=== PATIENT | male | born 1965 | race Caucasian/White ===

== ENCOUNTER 2023-02-23 18:09 | Emergency (ER) | payer BC, OTHER ==
[~2023-02-23] VITALS: Ht 180.3 cm; Wt 108.9 kg
[~2023-02-23 18:09] MED LIST: BENTYL10 MG PO; FLEXERIL10 MG PO; HYDROCODONE BIT1 T11 PO; KEFLEX500 MG PO; NAPROSYN500 MG PO; OMEPRAZOLE40 MG PO; ZOFRAN ODT8 MG PO
[2023-02-23 20:28] LABS: BASO # 0.1 10*3/uL (0.0-0.1); BASO % 1.4 % (0.0-1.0); EOS # 0.1 10*3/uL (0.0-0.4); EOS % 1.8 % (1.0-4.0); HEMATOCRIT 35.1 % (42.0-52.0); LYMPH # 1.3 10*3/uL (1.3-4.4); LYMPH % 22.4 % (27.0-41.0); MEAN CORPUSCULAR HGB 30.5 pg (27.0-31.0); MEAN CORPUSCULAR HGB CONC 33.9 g/dl (33.0-37.0); MEAN PLATELET VOLUME 9.5 fl (9.6-12.3); MONO # 0.5 10*3/uL (0.1-1.0); MONO % 8.1 % (3.0-9.0); NEUT # 3.8 10*3/uL (2.3-7.9); NEUT % 66.1 % (47.0-73.0); PLATELET COUNT AUTOMATED 220 10*3/uL (130-400); RED CELL DISTRI WIDTH 12.4 % (0-14.5); WHITE BLOOD COUNT 5.7 10*3/uL (4.8-10.8)
[2023-02-24 00:20] LABS: BASO # 0.1 10*3/uL (0.0-0.1); BASO % 0.9 % (0.0-1.0); EOS # 0.1 10*3/uL (0.0-0.4); EOS % 0.8 % (1.0-4.0); HEMATOCRIT 34.6 % (42.0-52.0); LYMPH # 1.3 10*3/uL (1.3-4.4); LYMPH % 17.2 % (27.0-41.0); MEAN CELL VOLUME 88.9 fl (80.0-94.0); MEAN CORPUSCULAR HGB 30.6 pg (27.0-31.0); MEAN CORPUSCULAR HGB CONC 34.4 g/dl (33.0-37.0); MEAN PLATELET VOLUME 9.2 fl (9.6-12.3); MONO # 0.5 10*3/uL (0.1-1.0); NEUT # 5.8 10*3/uL (2.3-7.9); PLATELET COUNT AUTOMATED 217 10*3/uL (130-400); RED BLOOD COUNT 3.89 10*6/uL (4.50-5.90); RED CELL DISTRI WIDTH 12.4 % (0-14.5); WHITE BLOOD COUNT 7.8 10*3/uL (4.8-10.8)
== END 2023-02-24 01:19 | disposition home or self-care (01) ==
LOC: ED 18:09
PROVIDERS: Internal Medicine
DX: R04.0 Epistaxis (principal); K21.9 Gastro-esophageal reflux disease without esophagitis; Z87.442 Personal history of urinary calculi; F32.A Depression, unspecified; Z98.890 Other specified postprocedural states; Z95.5 Presence of coronary angioplasty implant and graft

== ENCOUNTER 2024-03-17 03:31 | Emergency (ER) | payer BC ==
[~2024-03-17] VITALS: Ht 170.1 cm; Wt 110.2 kg
[2024-03-17] MEDS ORDERED: Meclizine Hydrochloride 25 MG TAB PO ONE (03:45)
[2024-03-17] MEDS ORDERED: methylPREDNISolone sod succ 125 MG VIAL IM ONE (03:45)
[2024-03-17] MEDS ORDERED: MEDI-MECLIZINE25 MG PO (05:11)
== END 2024-03-17 05:15 | disposition home or self-care (01) ==
LOC: ED 03:31
DX: H81.10 Benign paroxysmal vertigo, unspecified ear (principal); K21.9 Gastro-esophageal reflux disease without esophagitis; F32.A Depression, unspecified; Z87.442 Personal history of urinary calculi; Z98.890 Other specified postprocedural states

== ENCOUNTER 2024-09-21 18:09 | Emergency (ER) | payer OTHER ==
[~2024-09-21] VITALS: Wt 108.9 kg
[~2024-09-21 18:09] MED LIST changes: +MEDI-MECLIZINE25 MG PO
[2024-09-21 19:18] LABS: BASO # 0.1 10*3/uL (0.0-0.1); BASO % 0.6 % (0.0-1.0); EOS # 0.1 10*3/uL (0.0-0.4); EOS % 0.6 % (1.0-4.0); HEMATOCRIT 39.7 % (42.0-52.0); MEAN CELL VOLUME 87.1 fl (80.0-94.0); MEAN CORPUSCULAR HGB 29.8 pg (27.0-31.0); MEAN CORPUSCULAR HGB CONC 34.3 g/dl (33.0-37.0); MEAN PLATELET VOLUME 9.3 fl (9.6-12.3); MONO % 8.5 % (3.0-9.0); NEUT # 9.3 10*3/uL (2.3-7.9); NEUT % 79.6 % (47.0-73.0); PLATELET COUNT AUTOMATED 218 10*3/uL (130-400); RED BLOOD COUNT 4.56 10*6/uL (4.50-5.90); RED CELL DISTRI WIDTH 12.3 % (0-14.5); WHITE BLOOD COUNT 11.6 10*3/uL (4.8-10.8)
[2024-09-21 19:39] LABS: ALKALINE PHOSPHATASE 79 U/L (46-116); BUN 14 mg/dl (9-23); CHLORIDE 102 mmol/L (98-107); LIPASE 32 U/L (12-53); POTASSIUM 3.8 mmol/L (3.4-5.1); SGPT/ALT 21 U/L (5-49); TOTAL PROTEIN 7.1 gm/dL (6.0-8.0)
[2024-09-21 20:19] LABS: BILIRUBIN Negative (Negative); BLOOD Negative (Negative); CLARITY Clear (Clear); COLOR Yellow (Yellow); GLUCOSE Negative (Negative); KETONE Trace (Negative); LEUKO ESTERASE Negative (Negative); NITRITE Negative (Negative); SPECIFIC GRAVITY 1.025 (1.001-1.030); UROBILINOGEN 0.2 E.U./dl (0.0-1.0)
[2024-09-21 20:30] LABS: BACTERIA TRACE; CALCIUM OXALATE CRYSTALS Trace; WBC 0-2 wbc/hpf (0-5)
[2024-09-21] MEDS ORDERED: CIPRO500 MG PO (21:08)
[2024-09-21] MEDS ORDERED: METRONIDAZOLE500 M1 PO (21:08)
[2024-09-21] MEDS ORDERED: Ciprofloxacin Hydrochloride 500 MG TAB PO ONE (21:15)
[2024-09-21] MEDS ORDERED: metroNIDAZOLE 500 MG TAB PO ONE (21:15)
[2024-09-21] MEDS ORDERED: MORPHINE Sulfate 2 MG/ML SYR IV ONE (21:15)
== END 2024-09-21 21:24 | disposition home or self-care (01) ==
LOC: ED 18:09
PROVIDERS: Physician Assistant Medical
DX: K57.32 Diverticulitis of large intestine without perforation or abscess without bleeding (principal); K21.9 Gastro-esophageal reflux disease without esophagitis; R19.7 Diarrhea, unspecified; Z88.6 Allergy status to analgesic agent; Z87.442 Personal history of urinary calculi